=== PATIENT | male | born 1995 | race Caucasian/White ===

== ENCOUNTER 2018-03-18 08:17 | Emergency (ER) | payer OTHER ==
[2018-03-18] MEDS ORDERED: ONDANSETRON 4 MG/2 ML VIAL IVP STA (08:31)
[2018-03-18] MEDS ORDERED: KETOROLAC 60 MG/2 ML VIAL IVP STA (08:31)
[2018-03-18] MEDS ORDERED: SODIUM CHLORIDE 0.9% 1,000 ML IV ONE (08:31)
--- NOTE | 2018-03-18 08:41 | ED Physician Documentation ---
PD HPI ABD PAIN - Stated complaint Stated Complaint: ABD PX - Chief complaint Chief Complaint: Abd Pain - History obtained from History obtained from: Patient - History of Present Illness Timing - onset: Last night Timing - details: Gradual onset, Still present Severity Comments: moderate Quality: Dull, Throbbing Location: RLQ Radiation: Other (Throughout the lower abdomen) Improved by: Other (Nothing) Worsened by: Moving Associated symptoms: Nausea, Vomiting, Diarrhea Similar symptoms before: No diagnosis Recently seen: Not recently seen Review of Systems Constitutional: reports: Chills. denies: Fever Eyes: denies: Discharge Ears: denies: Ear pain Nose: denies: Congestion Throat: denies: Sore throat Cardiac: denies: Chest pain / pressure Respiratory: denies: Dyspnea GI: reports: Abdominal Pain, Nausea, Vomiting, Diarrhea : denies: Dysuria Skin: denies: Rash Musculoskeletal: denies: Neck pain Neurologic: denies: Generalized weakness Immunocompromised: denies: Chemotherapy PD PAST MEDICAL HISTORY - Present Medications Home Medications: Ambulatory Orders Medication Instructions Recorded Confirmed Famotidine [Pepcid] 20 mg PO BID PRN #60 tablet 03/18/18 Naproxen [Naprosyn] 500 mg PO BID PRN 30 Days #30 03/18/18 tablet Ondansetron Odt [Zofran] 4 mg TL Q6H PRN #30 tablet 03/18/18 - Allergies Allergies/Adverse Reactions: Allergies Allergy/AdvReac Type Severity Reaction Status Date / Time No Known Drug Allergies Allergy Verified 03/18/18 08:28 PD ED PE NORMAL - General General: Alert and oriented X 3. No: No acute distress (The patient appears uncomfortable) - HEENT HEENT: Atraumatic, PERRL, EOMI, Ears normal - Neck Neck: Supple, no meningeal sign - Cardiac Cardiac: RRR, Strong equal pulses - Respiratory Respiratory: No respiratory distress, Clear bilaterally - Abdomen Abdomen: Soft, Non distended. No: Non tender (The patient is tender to palpation in the right lower abdomen) - Back Back: No CVA TTP - Derm Derm: Normal color - Extremities Extremities: No deformity, No edema - Neuro Neuro: Alert and oriented X 3 - Psych Psych: Normal mood Results - Vitals Vitals: Vital Signs - 24 hr 03/18/18 03/18/18 08:26 11:03 Temperature 36.5 C Heart Rate 94 76 Respiratory 18 20 Rate Blood Pressure 138/77 H 126/63 O2 Saturation 98 99 Oxygen O2 Source Room air - Labs Labs: Laboratory Tests 03/18/18 03/18/18 03/18/18 08:35 08:35 09:00 WBC 4.3 L RBC 5.65 Hgb 17.2 Hct 49.1 MCV 87.0 MCH 30.5 MCHC 35.0 RDW 13.4 Plt Count 151 MPV 8.9 Neut # (Auto) 2.7 Lymph # (Auto) 1.1 L [place] # (Auto) 0.4 Eos # (Auto) 0.0 Baso # (Auto) 0.0 Absolute Nucleated RBC 0.00 Nucleated RBC % 0.1 Sodium 137 Potassium 4.1 Chloride 101 Carbon Dioxide 30 Anion Gap 6.0 BUN 11 Creatinine 1.0 Estimated GFR (MDRD) 94 Glucose 88 Calcium 9.5 Total Bilirubin 3.6 H AST 17 ALT 16 Alkaline Phosphatase 52 Total Protein 7.3 Albumin 4.8 Globulin 2.5 Albumin/Globulin Ratio 1.9 Lipase 19 L Urine Color DARK YELLOW Urine Clarity CLEAR Urine pH 8.0 H Ur Specific [place] 1.020 Urine Protein NEGATIVE Urine Glucose (UA) NEGATIVE Urine Ketones NEGATIVE Urine Occult Blood NEGATIVE Urine Nitrite NEGATIVE Urine Bilirubin NEGATIVE Urine Urobilinogen 1 (NORMAL) Ur Leukocyte Esterase NEGATIVE Ur Microscopic Review NOT INDICATED Urine Culture Comments NOT INDICATED - Rads (name of study) CT abd/pelvis Radiology: Final report received PD MEDICAL DECISION MAKING - ED course ED course: On reevaluation the patient resting comfortably and appears to be in no acute distress. The patient's workup does not reveal an acute etiology that would necessitate acute surgical consultation or admission to the hospital. Presently , the patient appears appropriate for discharge and ongoing outpatient management. I discussed with him the incidental finding of the elevated bilirubin. The patient will follow up with his primary care for recheck. I discussed warning signs and the possibility of early appendicitis still not showing up on CT scan. I recommended that the patient return to the emergency department immediately for any worsening or any concerns. Departure - Departure Disposition: 01 Home, Self Care Clinical Impression: Elevated bilirubin Abdominal pain Qualifiers: Abdominal location: lower abdomen, unspecified Qualified Code(s): R10.30 - Lower abdominal pain, unspecified Condition: Good Instructions: ED Abdominal Pain Unkn Cause, ED Abdominal Pain Appendx Poss Prescriptions: Famotidine [Pepcid] 20 mg PO BID PRN #60 tablet PRN Reason: Nausea / Vomiting Naproxen [Naprosyn] 500 mg PO BID PRN 30 Days #30 tablet PRN Reason: Pain Ondansetron Odt [Zofran] 4 mg TL Q6H PRN #30 tablet PRN Reason: Nausea / Vomiting Comments: Please follow-up with primary care this coming week for recheck. Please asked them to repeat a comprehensive metabolic panel to recheck your bilirubin level. Please return to the emergency department immediately for any worsening or any concerns. Forms: Activity restrictions
[2018-03-18 08:45] LABS: BASOPHILS % (AUTO) 0.3 %; HGB - HEMOGLOBIN 17.2 g/dL (14.0-18.0); LYMPHOCYTES # (AUTO) 1.1 10^3/uL (1.5-3.5); LYMPHOCYTES % (AUTO) 25.8 %; MEAN CORPUSCULAR HEMOGLOBIN 30.5 pg (27.0-31.0); MEAN PLATELET VOLUME 8.9 fL (7.4-11.4); MONOCYTES # (AUTO) 0.4 10^3/uL (0.0-1.0); MONOCYTES % (AUTO) 10.2 %; NEUTROPHILS # (AUTO) 2.7 10^3/uL (1.5-6.6); NEUTROPHILS % (AUTO) 62.7 %; PLT - PLATELET COUNT 151 10^3/uL (130-450); RED BLOOD COUNT 5.65 10^6/uL (4.70-6.10); RED CELL DISTRIBUTION WIDTH 13.4 % (12.0-15.0); WHITE BLOOD COUNT 4.3 x10^3/uL (4.8-10.8)
[2018-03-18 08:58] LABS: ALBUMIN 4.8 g/dL (3.2-5.5); ALBUMIN/GLOBULIN RATIO 1.9 (1.0-2.2); BILIRUBIN,TOTAL 3.6 mg/dL (0.2-1.0); CALCIUM 9.5 mg/dL (8.5-10.3); TOTAL PROTEIN 7.3 g/dL (6.7-8.2)
[2018-03-18 09:10] LABS: BILIRUBIN,URINE NEGATIVE (NEGATIVE); GLUCOSE, URINE (UA) NEGATIVE (NEGATIVE); KETONES,URINE (UA) NEGATIVE (NEGATIVE); LEUKOCYTE ESTERASE, URINE NEGATIVE (NEGATIVE); NITRITE,URINE NEGATIVE (NEGATIVE); OCCULT BLOOD,URINE NEGATIVE (NEGATIVE); PROTEIN,URINE NEGATIVE (NEGATIVE); UROBILINOGEN,URINE 1 (NORMAL) E.U./dL (NORMAL)
[2018-03-18 09:14] LABS: CLARITY,URINE CLEAR (CLEAR)
[2018-03-18] MEDS ORDERED: HYDROmorphone 1 MG/ML CARPUJECT IVP STA (11:08)
[2018-03-18] MEDS ORDERED: IOPAMIDOL-300 100 ML VIAL ONE (11:16)
--- NOTE | 2018-03-18 12:09 | CT Report ---
Reason: RLQ pain Procedure Date: 03/18/2018 Accession Number: [id number] / [id number] Procedure: CT - Abdomen/Pelvis W/ CPT Code: FULL RESULT: EXAM: CT ABDOMEN AND PELVIS EXAM DATE: 03/18/2018 11:32 AM. CLINICAL HISTORY: Right lower quadrant pain. COMPARISONS: None. TECHNIQUE: Routine helical CT imaging was performed through the abdomen and pelvis. IV contrast: 100 mL Isovue-300. Enteric contrast: No. Reconstructions: Coronal and sagittal. In accordance with CT protocol optimization, one or more of the following dose reduction techniques were utilized for this exam: automated exposure control, adjustment of mA and/or KV based on patient size, or use of iterative reconstructive technique. FINDINGS: Lung Bases: Unremarkable. Liver: Normal. No masses. Gallbladder/Bile Ducts: Unremarkable. Spleen: Normal. Pancreas: Normal. Adrenal Glands: Normal. Kidneys: Normal. No masses or hydronephrosis. Peritoneal Cavity/Bowel: Normal. No free fluid, free air or adenopathy. No masses or acute inflammatory process. The appendix is well visualized and normal. Pelvic Organs: Normal. The bladder and visualized pelvic organs are within normal limits. Vasculature: No aneurysms or other significant abnormality. Bones: No significant abnormality. Other: None. IMPRESSION: Normal abdomen and pelvis CT. RADIA
[2018-03-18 12:49] VITALS: BP 111/58
[2018-03-18] MEDS ORDERED: IOPAMIDOL-300 100 ML VIAL IVP ONE (16:00)
== END 2018-03-18 12:49 | disposition home or self-care (01) ==
LOC: ED 08:17
DX: E80.7 Disorder of bilirubin metabolism, unspecified (principal); R10.31 Right lower quadrant pain
CPT/HCPCS: 36415; 74177; 80053; 81003; 83690; 85025; 96361; 96374; 96375; 99284; J1170; Q9967; 81001; 87086

== ENCOUNTER 2019-02-23 06:47 | Observation (INO) | payer OTHER ==
[2019-02-23 07:06] LABS: BILIRUBIN,URINE NEGATIVE (NEGATIVE); GLUCOSE, URINE (UA) NEGATIVE (NEGATIVE); KETONES,URINE (UA) NEGATIVE (NEGATIVE); LEUKOCYTE ESTERASE, URINE NEGATIVE (NEGATIVE); NITRITE,URINE NEGATIVE (NEGATIVE); OCCULT BLOOD,URINE NEGATIVE (NEGATIVE); PROTEIN,URINE NEGATIVE (NEGATIVE); UROBILINOGEN,URINE 0.2 (NORMAL) E.U./dL (NORMAL)
[2019-02-23 07:10] LABS: CLARITY,URINE CLEAR (CLEAR)
--- NOTE | 2019-02-23 07:26 | ED Physician Documentation ---
PD HPI ABD PAIN - Stated complaint Stated Complaint: LOWER ABD PX/VOMING - Chief complaint Chief Complaint: Abd Pain - History obtained from History obtained from: Patient - History of Present Illness Timing - onset: How many days ago (2) Timing - duration: Days (2) Timing - details: Gradual onset (Onset of some periumbilical to right lower abdominal pain started 2 days ago associated with some frequent diarrhea and nausea. He did have some vomiting as well. He still continued with loose stool but the pain has intensified and become more consistent in the right lower quadrant. It hurts for him to palpate in the area as well as walk and lift his leg. He has felt feverish and chilled without taking his temperature. He did not have any head cold symptoms. He denies any prior similar episodes.), Still present Quality: Cramping, Aching, Pain Location: Periumbilical, RLQ Radiation: No: Lower back Improved by: No: Vomiting Worsened by: Eating, Moving, Palpation. No: Breathing Associated symptoms: Fever, Nausea, Vomiting, Diarrhea. No: Constipation, Dysuria Similar symptoms before: Has not had sx before Review of Systems Constitutional: reports: Fever (subjective), Chills Nose: denies: Rhinorrhea / runny nose, Congestion Throat: denies: Sore throat Respiratory: denies: Cough GI: reports: Abdominal Pain, Nausea, Vomiting, Diarrhea. denies: Hematemesis, Bloody / black stool : denies: Dysuria, Frequency, Discharge Skin: denies: Rash Neurologic: reports: Generalized weakness. denies: Near syncope, Altered mental status, Headache PD PAST MEDICAL HISTORY - Past Medical History Past Medical History: Yes Cardiovascular: None Respiratory: None Neuro: None Endocrine/Autoimmune: None GI: None : None HEENT: None Psych: None Musculoskeletal: None Derm: None - Past Surgical History Past Surgical History: Yes Ortho: Other - Present Medications Home Medications: Ambulatory Orders Medication Instructions Recorded Confirmed Famotidine [Pepcid] 20 mg PO BID PRN #60 tablet 03/18/18 Naproxen [Naprosyn] 500 mg PO BID PRN 30 Days #30 03/18/18 tablet Ondansetron Odt [Zofran] 4 mg TL Q6H PRN #30 tablet 03/18/18 - Allergies Allergies/Adverse Reactions: Allergies Allergy/AdvReac Type Severity Reaction Status Date / Time No Known Drug Allergies Allergy Verified 02/23/19 06:58 - Social History Does the pt smoke?: Yes Smoking Status: Current every day smoker Does the pt drink ETOH?: No Does the pt have substance abuse?: No - Immunizations Immunizations are current?: Yes - POLST Patient has POLST: No PD ED PE NORMAL - Vitals Vital signs reviewed: Yes - General General: Alert and oriented X 3, Well developed/nourished, Other (Appears very uncomfortable. Holding still in the bed with knees drawn up a little bit) - HEENT HEENT: Pharynx benign. No: Moist mucous membranes - Neck Neck: Supple, no meningeal sign, No adenopathy - Cardiac Cardiac: RRR, No murmur - Respiratory Respiratory: Clear bilaterally - Abdomen Abdomen: Soft, Non distended, No organomegaly, Other (Markedly tender with guarding and percussion tenderness in the right lower quadrant. There is significant rebound tenderness in the abdomen generally and particularly the right lower quadrant. Bowel sounds are present and diminished. There is no distention. No hernias are felt.) - Male Male : Deferred - Rectal Rectal: Deferred - Back Back: No CVA TTP - Derm Derm: Normal color, Warm and dry - Neuro Neuro: Alert and oriented X 3, No motor deficit, Normal speech Results - Vitals Vitals: Vital Signs - 24 hr 02/23/19 02/23/19 06:56 09:14 Temperature 36.6 C 36.8 C Heart Rate 65 61 Respiratory 17 15 Rate Blood Pressure 127/80 146/87 H O2 Saturation 100 99 Oxygen O2 Source Room air - Labs Labs: Laboratory Tests 02/23/19 02/23/19 02/23/19 06:55 07:47 07:47 WBC 4.3 L RBC 5.82 Hgb 17.1 Hct 50.9 MCV 87.5 MCH 29.4 MCHC 33.6 RDW 12.5 Plt Count 149 MPV 10.9 Neut # (Auto) 2.5 Lymph # (Auto) 1.2 L [place] # (Auto) 0.4 Eos # (Auto) 0.1 Baso # (Auto) 0.0 Absolute Nucleated RBC 0.00 Nucleated RBC % 0.0 Sodium 137 Potassium 3.9 Chloride 100 L Carbon Dioxide 29 Anion Gap 8.0 BUN 16 Creatinine 1.1 Estimated GFR (MDRD) 84 L Glucose 99 Calcium 9.0 Total Bilirubin 1.5 H AST 16 ALT 14 Alkaline Phosphatase 40 L Total Protein 6.8 Albumin 4.3 Globulin 2.5 Albumin/Globulin Ratio 1.7 Lipase 21 L Urine Color DARK YELLOW Urine Clarity CLEAR Urine pH 6.0 Ur Specific [place] >=1.030 H Urine Protein NEGATIVE Urine Glucose (UA) NEGATIVE Urine Ketones NEGATIVE Urine Occult Blood NEGATIVE Urine Nitrite NEGATIVE Urine Bilirubin NEGATIVE Urine Urobilinogen 0.2 (NORMAL) Ur Leukocyte Esterase NEGATIVE Ur Microscopic Review NOT INDICATED Urine Culture Comments NOT INDICATED - Rads (name of study) abd ct Radiology: Prelim report reviewed (Normal appendix and no acute finding to account for the pain), Discussed with rads, See rad report PD MEDICAL DECISION MAKING - ED course Complexity details: reviewed results, re-evaluated patient (Still very tender in the right lower quadrant. Having peritoneal signs. Presuming colitis given his symptoms and normal CT scan. He is having significantly too much pain and tenderness to treat outpatient. Will consult with surgery.), considered differential (His presentation and exam in particular are very suspicious for appendicitis. Consider gastroenteritis with local adenopathy or such to but he does have peritoneal signs and the appendiceal region. We will get labs and CT scan. Meanwhile give IV fluids and medications), d/w patient, d/w insolvency consultant (Dr. Covarrubias, surgery) Departure - Departure Disposition: ED Place in Observation Clinical Impression: Vomiting Qualifiers: Vomiting type: unspecified Vomiting Intractability: non-intractable Nausea presence: with nausea Qualified Code(s): R11.2 - Nausea with vomiting, unspecified Diarrhea Qualifiers: Diarrhea type: unspecified type Qualified Code(s): R19.7 - Diarrhea, unspecified Abdominal pain Qualifiers: Abdominal location: right lower quadrant Qualified Code(s): R10.31 - Right lower quadrant pain Clinical Impression: (Ruled Out): Appendicitis Condition: Stable Record reviewed to determine appropriate education?: Yes
[2019-02-23] MEDS ORDERED: HYDROmorphone 1 MG/ML CARPUJECT IVP STA ×3 (07:40→09:45)
[2019-02-23] MEDS ORDERED: SODIUM CHLORIDE 0.9% 1,000 ML IV ONE ×2 (07:40)
[2019-02-23] MEDS ORDERED: ONDANSETRON 4 MG/2 ML VIAL IVP STA (07:40)
[2019-02-23] MEDS ORDERED: IOVERSOL 320 100 ML VIAL IVP ONE ×2 (08:02→10:59)
[2019-02-23 08:13] LABS: BASOPHILS % (AUTO) 0.5 %; EOSINOPHILS # (AUTO) 0.1 10^3/uL (0.0-0.7); EOSINOPHILS % (AUTO) 2.1 %; HGB - HEMOGLOBIN 17.1 g/dL (14.0-18.0); LYMPHOCYTES # (AUTO) 1.2 10^3/uL (1.5-3.5); LYMPHOCYTES % (AUTO) 27.8 %; MEAN CORPUSCULAR HEMOGLOBIN 29.4 pg (27.0-31.0); MEAN CORPUSCULAR HGB CONC 33.6 g/dL (32.0-36.0); MEAN CORPUSCULAR VOLUME 87.5 fL (80.0-94.0); MEAN PLATELET VOLUME 10.9 fL (7.4-11.4); MONOCYTES # (AUTO) 0.4 10^3/uL (0.0-1.0); NEUTROPHILS # (AUTO) 2.5 10^3/uL (1.5-6.6); NEUTROPHILS % (AUTO) 59.1 %; PLT - PLATELET COUNT 149 10^3/uL (130-450); RED BLOOD COUNT 5.82 10^6/uL (4.70-6.10); RED CELL DISTRIBUTION WIDTH 12.5 % (12.0-15.0); WHITE BLOOD COUNT 4.3 x10^3/uL (4.8-10.8)
[2019-02-23 08:25] LABS: ALBUMIN 4.3 g/dL (3.2-5.5); ALBUMIN/GLOBULIN RATIO 1.7 (1.0-2.2); BILIRUBIN,TOTAL 1.5 mg/dL (0.2-1.0); CREATININE 1.1 mg/dL (0.6-1.2); TOTAL PROTEIN 6.8 g/dL (6.7-8.2)
--- NOTE | 2019-02-23 09:04 | CT Report ---
Reason: RLQ abd pain for 2 days Procedure Date: 02/23/2019 Accession Number: [id number] / [id number] Procedure: CT - Abdomen/Pelvis W CPT Code: FULL RESULT: EXAM: CT ABDOMEN AND PELVIS EXAM DATE: 02/23/2019 08:39 AM. CLINICAL HISTORY: RLQ abd pain for 2 days. COMPARISONS: ABDOMEN/PELVIS W/ 03/18/2018 11:30 AM. TECHNIQUE: Routine helical CT imaging was performed through the abdomen and pelvis. IV contrast: OPTI 320 100ML. Enteric contrast: No. Reconstructions: Coronal and sagittal. In accordance with CT protocol optimization, one or more of the following dose reduction techniques were utilized for this exam: automated exposure control, adjustment of mA and/or KV based on patient size, or use of iterative reconstructive technique. FINDINGS: Lung Bases: Unremarkable. Liver: Normal. No masses. Gallbladder/Bile Ducts: Unremarkable. Spleen: Normal. Pancreas: Normal. Adrenal Glands: Normal. Kidneys: Normal. No masses or hydronephrosis. Peritoneal Cavity/Bowel: Normal. No free fluid, free air or adenopathy. No masses or acute inflammatory process. The appendix is well visualized and normal. Pelvic Organs: Normal. The bladder and visualized pelvic organs are within normal limits. Vasculature: No aneurysms or other significant abnormality. Bones: No significant abnormality. Bone islands in the pelvis Other: None. IMPRESSION: Normal abdomen and pelvis CT. Normal appendix. No etiology for the abdominal pain RADIA
[2019-02-23] MEDS ORDERED: KETOROLAC 30 MG/ML VIAL IVP STA (09:26)
[2019-02-23] MEDS ORDERED: DIPHENOX/ATROPINE 2.5/0.025 MG TABLET PO STA (09:26)
[2019-02-23] MEDS ORDERED: AMPICILLIN/SULBACTAM 1.5 GM in SODIUM CHLORIDE 0.9% MINIBAG 100 ML IV STA (10:17)
[2019-02-23] MEDS ORDERED: PROMETHAZINE 25 MG/1 ML VIAL IM PRN (10:40)
[2019-02-23] MEDS ORDERED: SODIUM CHLORIDE FLUSH 0.9% 10 ML SYRINGE IVP PRN (10:40)
[2019-02-23] MEDS ORDERED: ONDANSETRON 4 MG/2 ML VIAL IVP PRN (10:40)
[2019-02-23] MEDS ORDERED: HYDROmorphone PCA 20MG/100ML IV PRN (10:45)
[2019-02-23] MEDS: PANTOPRAZOLE 40 MG VIAL IVP SCH (12:28)
[2019-02-23] MEDS: LACTATED RINGERS 1,000 ML IV SCH ×2 (12:37→23:42)
[2019-02-23] MEDS: PIPERACILLIN/TAZOBACTAM 3.375 GM in SODIUM CHLORIDE 0.9% MINIBAG 100 ML IV SCH ×3 (12:38→23:43)
[2019-02-23] MEDS: SODIUM CHLORIDE FLUSH 0.9% 10 ML SYRINGE IVP SCH (18:32)
--- NOTE | 2019-02-23 21:31 | HISTORY & PHYSICAL EXAMINATION ---
Chief Complaint - Chief Complaint Chief Complaint: Abdominal pain Abdominal Pain HPI - Admitted From Admitted from: ED - History Obtained From Records Reviewed: RN notes reviewed History obtained from: Patient Exam limitations: No limitations - History of Present Illness Severity at the worst: Severe Pain Quality: Dull, Aching, Cramping Timing: Gradual onset, Constant Duration: Days: (3) Improved with: Nothing Worsened by: Exertion, Inspiration, Eating, Movement, Palpation Associated symptoms: Diaphoresis, Nausea, Vomiting, Feeling faint / dizzy, General Weakness (Eddi reports 3 days of worsening abdominal pain. He says this has been associated with nausea and vomiting. He is not aware of any sick contacts. He has never had similar symptoms. He denies any blood in stool or emesis. He reports night sweats and subjective fever at home.) PMH/PSH - Past Medical History Cardiovascular: positive: None Respiratory: positive: None Neuro: positive: None Endocrine/Autoimmune: positive: None GI: positive: None : positive: None HEENT: positive: None Psych: positive: None Musculoskeletal: positive: None Derm: positive: None MRSA Hx?: No Social & Family Hx - Social History Does the pt smoke?: Yes Smoking Status: Former smoker Does the pt drink ETOH?: No Does the pt have substance abuse?: No - POLST Patient has POLST: No Meds/Allgy - Allergies Allergies/Adverse Reactions: Allergies Allergy/AdvReac Type Severity Reaction Status Date / Time No Known Drug Allergies Allergy Verified 02/23/19 06:58 Review of Systems - Constitutional Constitutional: reports: Fatigue, Fever, Chills, Malaise, Diaphoresis, Night sweats - Eyes Eyes: denies: Pain, Amaurosis - Ears, Nose & Throat Ears, Nose & Throat: denies: Ear pain, Tinnitus, Vertigo, Sore throat - Cardiovascular Cariovascular: denies: Palpitations, Chest pain, Edema - Respiratory Respiratory: denies: Cough, Orthopnea - Gastrointestinal Gastrointestinal: reports: Abdominal pain, Diarrhea, Nausea, Vomiting, Reflux/heartburn, Poor appetite. denies: Rectal bleeding, Black stools, Bloody stools - Genitourinary Genitourinary: denies: Dysuria, Frequency, Urgency - Musculoskeletal Musculoskeletal: denies: Muscle pain, Back pain - Integumentary Integumentary: denies: Rash, Lesions - Neurological Neurological: denies: Focal weakness - Hematologic/Lymphatic Hematologic/Lymphatic: denies: Anemia, Bruising Exam - Vital Signs Reviewed Vital Signs: Yes Vital Signs: Vital Signs x48h Temp Pulse Resp BP Pulse Ox 02/23/19 20:00 36.7 C 59 L 16 118/65 99 02/23/19 18:00 16 02/23/19 17:08 16 02/23/19 16:00 14 02/23/19 15:43 36.5 C 55 L 16 121/64 97 02/23/19 15:00 14 02/23/19 14:00 14 - Physical Exam General Appearance: positive: Moderate distress, Lethargic Eyes Bilateral: positive: Normal inspection, PERRL, EOMI ENT: positive: ENT inspection nml, Pharynx nml Neck: positive: Nml inspection, Trachea midline. negative: Lymphadenopathy (R), Lymphadenopathy (L) Respiratory: positive: Chest non-tender, No respiratory distress, Breath sounds nml Cardiovascular: positive: Regular rate & rhythm, No murmur Peripheral Pulses: positive: 2+ Abdomen: positive: Tenderness, Guarding, Rebound, Abnml bowel sounds, Other (Hyperactive bowel sounds. Global tenderness to palpation.Tenderness extends i nto bilateral groins.) Back: positive: CVA tenderness (R), CVA tenderness (L) Skin: positive: Color nml, No rash Extremities: positive: Non-tender, Full ROM, Nml appearance Neurologic/Psychiatric: positive: Oriented x3, CN's nml (2-12) Results - Lab Results Fish Bones: 02/23/19 07:47 02/23/19 07:47 Other Lab Results: Lab Results x24hrs 02/23/19 02/23/19 02/23/19 Range/Units 07:47 07:47 06:55 WBC 4.3 L (4.8-10.8) x10^3/uL RBC 5.82 (4.70-6.10) 10^6/uL Hgb 17.1 (14.0-18.0) g/dL Hct 50.9 (42.0-52.0) % MCV 87.5 (80.0-94.0) fL MCH 29.4 (27.0-31.0) pg MCHC 33.6 (32.0-36.0) g/dL RDW 12.5 (12.0-15.0) % Plt Count 149 (130-450) 10^3/uL MPV 10.9 (7.4-11.4) fL Neut # (Auto) 2.5 (1.5-6.6) 10^3/uL Lymph # (Auto) 1.2 L (1.5-3.5) 10^3/uL [place] # (Auto) 0.4 (0.0-1.0) 10^3/uL Eos # (Auto) 0.1 (0.0-0.7) 10^3/uL Baso # (Auto) 0.0 (0.0-0.1) 10^3/uL Absolute Nucleated RBC 0.00 x10^3/uL Nucleated RBC % 0.0 /100WBC Sodium 137 (135-145) mmol/L Potassium 3.9 (3.5-5.0) mmol/L Chloride 100 L (101-111) mmol/L Carbon Dioxide 29 (21-32) mmol/L Anion Gap 8.0 (6-13) BUN 16 (6-20) mg/dL Creatinine 1.1 (0.6-1.2) mg/dL Estimated GFR (MDRD) 84 L (>89) Glucose 99 (70-100) mg/dL Calcium 9.0 (8.5-10.3) mg/dL Total Bilirubin 1.5 H (0.2-1.0) mg/dL AST 16 (10-42) IU/L ALT 14 (10-60) IU/L Alkaline Phosphatase 40 L (42-121) IU/L Total Protein 6.8 (6.7-8.2) g/dL Albumin 4.3 (3.2-5.5) g/dL Globulin 2.5 (2.1-4.2) g/dL Albumin/Globulin Ratio 1.7 (1.0-2.2) Lipase 21 L (22-51) U/L Urine Color DARK YELLOW Urine Clarity CLEAR (CLEAR) Urine pH 6.0 (5.0-7.5) PH Ur Specific [place] >=1.030 H (1.002-1.030) Urine Protein NEGATIVE (NEGATIVE) mg/dL Urine Glucose (UA) NEGATIVE (NEGATIVE) mg/dL Urine Ketones NEGATIVE (NEGATIVE) mg/dL Urine Occult Blood NEGATIVE (NEGATIVE) Urine Nitrite NEGATIVE (NEGATIVE) Urine Bilirubin NEGATIVE (NEGATIVE) Urine Urobilinogen 0.2 (NORMAL) (NORMAL) E.U./dL Ur Leukocyte Esterase NEGATIVE (NEGATIVE) Ur Microscopic Review NOT INDICATED Urine Culture Comments NOT INDICATED - Diagnostic Imaging Results Diagnostic Imaging Results: positive: Prelim report reviewed, Final report reviewed Diagnostic Imaging Results Comments: Essentially normal. No clear explanation for symptoms - EKG Results EKG Interpreted Independently: No Impression/Plan - Problem List Problem List: Abdominal pain of unknown etiology. Symptoms would suggest colitis or appendicitis. CT scan is not consistent with appendicitis. Will admit for hydration, IV antibiotic therapy and supportive care. Check stool studies and recheck labs in the AM
[2019-02-24] MEDS: SODIUM CHLORIDE FLUSH 0.9% 10 ML SYRINGE IVP SCH ×3 (00:13→16:33)
[2019-02-24] MEDS: PIPERACILLIN/TAZOBACTAM 3.375 GM in SODIUM CHLORIDE 0.9% MINIBAG 100 ML IV SCH ×3 (05:30→18:43)
[2019-02-24] MEDS: PANTOPRAZOLE 40 MG VIAL IVP SCH (06:23)
[2019-02-24] MEDS: LACTATED RINGERS 1,000 ML IV SCH (10:32)
[2019-02-24 13:42] LABS: BASOPHILS % (AUTO) 0.5 %; EOSINOPHILS # (AUTO) 0.1 10^3/uL (0.0-0.7); EOSINOPHILS % (AUTO) 1.6 %; HGB - HEMOGLOBIN 15.3 g/dL (14.0-18.0); LYMPHOCYTES # (AUTO) 1.4 10^3/uL (1.5-3.5); MEAN CORPUSCULAR HEMOGLOBIN 29.6 pg (27.0-31.0); MEAN CORPUSCULAR HGB CONC 34.1 g/dL (32.0-36.0); MEAN CORPUSCULAR VOLUME 86.8 fL (80.0-94.0); MEAN PLATELET VOLUME 10.7 fL (7.4-11.4); MONOCYTES # (AUTO) 0.4 10^3/uL (0.0-1.0); MONOCYTES % (AUTO) 6.5 %; NEUTROPHILS # (AUTO) 3.8 10^3/uL (1.5-6.6); PLT - PLATELET COUNT 142 10^3/uL (130-450); RED BLOOD COUNT 5.17 10^6/uL (4.70-6.10); RED CELL DISTRIBUTION WIDTH 12.6 % (12.0-15.0); WHITE BLOOD COUNT 5.7 x10^3/uL (4.8-10.8)
[2019-02-24 14:03] LABS: ALBUMIN 3.5 g/dL (3.2-5.5); ALBUMIN/GLOBULIN RATIO 1.6 (1.0-2.2); BILIRUBIN,TOTAL 2.1 mg/dL (0.2-1.0); CALCIUM 8.6 mg/dL (8.5-10.3); CREATININE 1.1 mg/dL (0.6-1.2); TOTAL PROTEIN 5.7 g/dL (6.7-8.2)
[2019-02-24 15:37] VITALS: BP 126/61
--- NOTE | 2019-02-24 17:57 | Discharge Plan ---
Discharge Plan Problem Reviewed?: Yes Disposition: Home, Self Care Condition: Good Prescriptions: Amox/Clav 875/125 [Augmentin] 1 each PO Q12H #10 tablet Diet: Regular Activity Restrictions: No Restrictions Shower Restrictions: No Driving Restrictions: No Plan of Treatment: Take medication as directed. Follow up with Dr. Covarrubias in 1 week. Assessment: Colitis - improved No Smoking: If you smoke, Please STOP! Call for help.
--- NOTE | 2019-02-24 18:00 | DISCHARGE SUMMARY ---
"Discharge Summary Admit Date: 02/23/19 Discharge Date: 02/24/19 Discharging Provider: Marci Primary Care Provider: [facility] Condition at Discharge: Good Discharge Disposition: 01 Home, Self Care - DIAGNOSES Admission Diagnoses: Colitis Discharge Diagnoses with Status of Each Condition: Improved - HPI History of Present Illness: Eddi presented to the ED with abdominal pain with nausea and vomiting. He was admitted for treatment of colitis. - CONSULTS | PROCEDURES Consultations: None Procedures: None - HOSPITAL COURSE Hospital Course: Eddi was admitted to the Med/Surg unit and started on IV antibiotic therapy and supportive care. He has improved dramatically over night. He was able to eat today and has had no further nausea or vomiting. He reports some flatus but has not had a bowel movement. He will be discharged to the care of his friends and family in [place]. - ALLERGIES Allergies/Adverse Reactions: Allergies Allergy/AdvReac Type Severity Reaction Status Date / Time No Known Drug Allergies Allergy Verified 02/23/19 06:58 - MEDICATIONS Home Medications: Ambulatory Orders Medication Instructions Recorded Confirmed Amox/Clav 875/125 [Augmentin] 1 each PO Q12H #10 tablet 02/24/19 - PHYSICAL EXAM AT DISCHARGE General Appearance: positive: No acute distress, Alert Eyes Bilateral: positive: Normal inspection, PERRL, EOMI ENT: positive: ENT inspection nml, Pharynx nml, No signs of dehydration Neck: positive: Nml inspection, Thyroid nml, Trachea midline Respiratory: positive: Chest non-tender, No respiratory distress, Breath sounds nml Cardiovascular: positive: Regular rate & rhythm, No murmur, No gallop Peripheral Pulses: positive: 2+ Abdomen: positive: Nml bowel sounds, Other (Minimal global tenderness to palpation now. Much improved from examination 24 hours ago) Back: positive: Nml inspection. negative: CVA tenderness (R), CVA tenderness (L) Skin: positive: Color nml Extremities: positive: Non-tender, Full ROM Neurologic/Psychiatric: positive: Oriented x3, CN's nml (2-12) - LABS Result Diagrams: 02/24/19 13:26 02/24/19 13:26 - DIAGNOSTIC IMAGING Diagnostic Imaging Results: Final report reviewed Diagnostic Imaging Results Comments: Normal CT - FOLLOW UP Follow Up: Dr. Covarrubias in 1 week - TIME SPENT Time Spent in Discharge (Minutes): 25"
== END 2019-02-24 19:15 | disposition home or self-care (01) ==
LOC: ED 06:47 → MS3 10:40
PROVIDERS: ADMIT Surgery; ATTEND Surgery
DX: K52.9 Noninfective gastroenteritis and colitis, unspecified (principal); Z87.891 Personal history of nicotine dependence
CPT/HCPCS: 36415; 74177; 80053; 81003; 83690; 85025; 96361; 96365; 96366; 96367; 96375; 96376; 99284; 99285; A9270; G0378; J1170; J7120; Q9967; 81001; 83630; 87045; 87046; 87086; 87177; 87209; 87338; 87798

== ENCOUNTER 2019-04-21 09:13 | Emergency (ER) | payer OTHER ==
[2019-04-21] MEDS ORDERED: SODIUM CHLORIDE 0.9% 1,000 ML IV ONE ×2 (09:26)
[2019-04-21 09:53] LABS: BILIRUBIN,URINE NEGATIVE (NEGATIVE); GLUCOSE, URINE (UA) NEGATIVE (NEGATIVE); KETONES,URINE (UA) TRACE mg/dL (NEGATIVE); LEUKOCYTE ESTERASE, URINE TRACE (NEGATIVE); NITRITE,URINE NEGATIVE (NEGATIVE); OCCULT BLOOD,URINE NEGATIVE (NEGATIVE); PROTEIN,URINE NEGATIVE (NEGATIVE); UROBILINOGEN,URINE 1 (NORMAL) E.U./dL (NORMAL)
[2019-04-21 09:54] LABS: CLARITY,URINE HAZY (CLEAR)
[2019-04-21 09:59] LABS: BACTERIA,URINE Rare /HPF (None Seen); RBC,URINE 0-5 /HPF (0-5); SQUAMOUS EPITHELIAL CELL,UR MOD Squamous (<= Few)
[2019-04-21 10:01] LABS: BASOPHILS % (AUTO) 0.4 %; EOSINOPHILS # (AUTO) 0.1 10^3/uL (0.0-0.7); EOSINOPHILS % (AUTO) 1.7 %; HGB - HEMOGLOBIN 17.7 g/dL (14.0-18.0); LYMPHOCYTES # (AUTO) 1.2 10^3/uL (1.5-3.5); LYMPHOCYTES % (AUTO) 24.4 %; MEAN CORPUSCULAR HEMOGLOBIN 30.2 pg (27.0-31.0); MEAN CORPUSCULAR HGB CONC 33.9 g/dL (32.0-36.0); MEAN CORPUSCULAR VOLUME 89.1 fL (80.0-94.0); MEAN PLATELET VOLUME 10.8 fL (7.4-11.4); MONOCYTES # (AUTO) 0.5 10^3/uL (0.0-1.0); MONOCYTES % (AUTO) 9.3 %; NEUTROPHILS # (AUTO) 3.1 10^3/uL (1.5-6.6); NEUTROPHILS % (AUTO) 63.8 %; PLT - PLATELET COUNT 158 10^3/uL (130-450); RED BLOOD COUNT 5.86 10^6/uL (4.70-6.10); RED CELL DISTRIBUTION WIDTH 13.1 % (12.0-15.0); WHITE BLOOD COUNT 4.8 x10^3/uL (4.8-10.8)
[2019-04-21] MEDS ORDERED: KETOROLAC 30 MG/ML VIAL IVP STA (10:07)
[2019-04-21] MEDS ORDERED: diphenhydrAMINE INJ 50 MG/ML VIAL IVP STA (10:07)
[2019-04-21] MEDS ORDERED: PROCHLORPERAZINE 10 MG/2 ML VIAL IVP STA (10:07)
[2019-04-21 10:15] LABS: ALBUMIN 4.8 g/dL (3.2-5.5); ALBUMIN/GLOBULIN RATIO 1.9 (1.0-2.2); BILIRUBIN,TOTAL 3.2 mg/dL (0.2-1.0); CALCIUM 9.2 mg/dL (8.5-10.3); CREATININE 1.1 mg/dL (0.6-1.2); TOTAL PROTEIN 7.3 g/dL (6.7-8.2)
--- NOTE | 2019-04-21 10:32 | ED Physician Documentation ---
History of Present Illness - Stated complaint Stated Complaint: HEADACHE/DIZZINESS - Chief complaint Chief Complaint: Abd Pain - History obtained from History obtained from: Patient - History of Present Illness Timing: Yesterday Pain level max: 8 Pain level now: 7 - Additonal information Additional information: 23-year-old male presents the emergency department stating that he began to not feel well yesterday. Body aches, headache, neck pain, vomiting x1. Intermittent sharp abdominal pains[place] here for evaluation. No fevers. He states he took Benadryl yesterday which helped, but then the symptoms returned. No cough. Worse with movement, better with rest. Review of Systems Ten Systems: 10 systems reviewed and negative Constitutional: denies: Fever, Chills Ears: denies: Ear pain Nose: denies: Rhinorrhea / runny nose, Congestion Respiratory: denies: Dyspnea, Cough, Wheezing GI: denies: Diarrhea, Hematemesis, Bloody / black stool : denies: Dysuria Skin: denies: Rash Musculoskeletal: reports: Neck pain (states neck feels sore). denies: Back pain Neurologic: reports: Headache (gradual onset, holocranial. wraps from neck to forehead. worse with lights and sounds. Has been under increasing stress lately.). denies: Focal weakness, Numbness, Seizure, Confused PD PAST MEDICAL HISTORY - Past Medical History Cardiovascular: None Respiratory: None Neuro: None Endocrine/Autoimmune: None GI: None : None HEENT: None Psych: None Musculoskeletal: None Derm: None - Past Surgical History Past Surgical History: Yes Ortho: Other - Present Medications Home Medications: Ambulatory Orders Medication Instructions Recorded Confirmed No Known Home Medications 04/21/19 04/21/19 - Allergies Allergies/Adverse Reactions: Allergies Allergy/AdvReac Type Severity Reaction Status Date / Time No Known Drug Allergies Allergy Verified 04/21/19 09:18 - Social History Does the pt smoke?: Yes Smoking Status: Former smoker Does the pt drink ETOH?: No Does the pt have substance abuse?: No - Immunizations Immunizations are current?: Yes - POLST Patient has POLST: No PD ED PE NORMAL - Vitals Vital signs reviewed: Yes - General General: Alert and oriented X 3, No acute distress - HEENT HEENT: Atraumatic, PERRL, Ears normal, Moist mucous membranes, Pharynx benign - Neck Neck: Supple, no meningeal sign, Other (No meningeal signs. Full range of motion of the neck. Negative Kernig and Brudzinski) - Cardiac Cardiac: RRR, Strong equal pulses - Respiratory Respiratory: No respiratory distress, Clear bilaterally - Abdomen Abdomen: Soft, Non tender, Non distended - Back Back: No spinal TTP - Derm Derm: Warm and dry - Extremities Extremities: No edema - Neuro Neuro: Alert and oriented X 3, pocket closer 2-12 intact, No motor deficit, No sensory deficit, Normal speech Eye Opening: Spontaneous Motor: Obeys Commands Verbal: Oriented GCS Score: 15 - Psych Psych: Normal mood, Normal affect Results - Vitals Vitals: Vital Signs - 24 hr 04/21/19 04/21/19 04/21/19 09:16 11:22 12:40 Temperature 36.6 C Heart Rate 73 76 70 Respiratory 16 18 18 Rate Blood Pressure 144/84 H 143/87 H 118/66 O2 Saturation 99 99 97 Oxygen O2 Source Room air - Labs Labs: Laboratory Tests 04/21/19 04/21/19 04/21/19 09:42 09:42 09:44 WBC 4.8 RBC 5.86 Hgb 17.7 Hct 52.2 H MCV 89.1 MCH 30.2 MCHC 33.9 RDW 13.1 Plt Count 158 MPV 10.8 Neut # (Auto) 3.1 Lymph # (Auto) 1.2 L [place] # (Auto) 0.5 Eos # (Auto) 0.1 Baso # (Auto) 0.0 Absolute Nucleated RBC 0.00 Nucleated RBC % 0.0 Sodium 140 Potassium 3.9 Chloride 101 Carbon Dioxide 30 Anion Gap 9.0 BUN 15 Creatinine 1.1 Estimated GFR (MDRD) 84 L Glucose 81 Calcium 9.2 Total Bilirubin 3.2 H AST 17 ALT 19 Alkaline Phosphatase 43 Total Protein 7.3 Albumin 4.8 Globulin 2.5 Albumin/Globulin Ratio 1.9 Lipase 22 Urine Color YELLOW Urine Clarity HAZY Urine pH 6.0 Ur Specific [place] 1.025 Urine Protein NEGATIVE Urine Glucose (UA) NEGATIVE Urine Ketones TRACE Urine Occult Blood NEGATIVE Urine Nitrite NEGATIVE Urine Bilirubin NEGATIVE Urine Urobilinogen 1 (NORMAL) Ur Leukocyte Esterase TRACE H Urine RBC 0-5 Urine WBC 6-10 H Ur Squamous Epith Cells MOD Squamous H Urine Bacteria Rare Ur Microscopic Review INDICATED Urine Culture Comments NOT INDICATED Influenza A (Rapid) Influenza B (Rapid) 04/21/19 11:55 WBC RBC Hgb Hct MCV MCH MCHC RDW Plt Count MPV Neut # (Auto) Lymph # (Auto) [place] # (Auto) Eos # (Auto) Baso # (Auto) Absolute Nucleated RBC Nucleated RBC % Sodium Potassium Chloride Carbon Dioxide Anion Gap BUN Creatinine Estimated GFR (MDRD) Glucose Calcium Total Bilirubin AST ALT Alkaline Phosphatase Total Protein Albumin Globulin Albumin/Globulin Ratio Lipase Urine Color Urine Clarity Urine pH Ur Specific [place] Urine Protein Urine Glucose (UA) Urine Ketones Urine Occult Blood Urine Nitrite Urine Bilirubin Urine Urobilinogen Ur Leukocyte Esterase Urine RBC Urine WBC Ur Squamous Epith Cells Urine Bacteria Ur Microscopic Review Urine Culture Comments Influenza A (Rapid) Negative Influenza B (Rapid) Negative PD MEDICAL DECISION MAKING - ED course Complexity details: reviewed results, re-evaluated patient, considered differential, d/w patient ED course: Headache resolved in the emergency department. Patient is very well-appearing, nontoxic. Afebrile. No evidence of meningitis, subarachnoid hemorrhage. Appears to be a viral syndrome. Tolerating p.o. without difficulty. Able to range his neck and a full range of motion without any discomfort. We will treat as viral syndrome and follow-up with his doctor. Patient counseled regarding signs and symptoms for which I believe and urgent re-evaluation would be necessary. Patient with good understanding of and agreement to plan and is comfortable going home at this time This document was made in part using voice recognition software. While efforts are made to proofread this document, sound alike and grammatical errors may occur. Departure - Departure Disposition: 01 Home, Self Care Clinical Impression: Viral syndrome Condition: Good Instructions: ED Viral Syndrome Follow-Up: NAVID CHE MD [Primary Care Provider] - Within 1 week Comments: Go home and rest. Return if you worsen. Follow-up with your doctor for further care. Your testing is normal here today Discharge Date/Time: 04/21/19 12:40
[2019-04-21 12:41] VITALS: BP 118/66
== END 2019-04-21 12:40 | disposition home or self-care (01) ==
LOC: ED 09:13
DX: B34.9 Viral infection, unspecified (principal); Z87.891 Personal history of nicotine dependence
CPT/HCPCS: 36415; 80053; 81001; 83690; 85025; 87275; 87276; 96361; 96374; 96375; 99282; 99283; J1200; 81003; 87086

== ENCOUNTER 2019-04-23 13:23 | Outpatient (CLI) | payer OTHER | END 2019-04-23 13:24 | disposition critical access hospital (66) | LOC: EMS 13:23 | PROVIDERS: ATTEND Surgery | DX: R51 Headache (principal); H53.9 Unspecified visual disturbance; R11.0 Nausea | CPT/HCPCS: A0425; A0427 ==

== ENCOUNTER 2019-04-23 14:00 | Emergency (ER) | payer OTHER ==
[2019-04-23] MEDS ORDERED: BUTALB/ACETAM/CAFF 50/325/40MG TABLET PO STA (14:40)
[2019-04-23] MEDS ORDERED: IOVERSOL 320 100 ML VIAL IVP ONE ×2 (15:06→15:48)
[2019-04-23] MEDS ORDERED: KETOROLAC 30 MG/ML VIAL IVP STA (15:10)
--- NOTE | 2019-04-23 15:10 | ED Physician Documentation ---
PD HPI HEADACHE - Stated complaint Stated Complaint: RESTREPO - Chief complaint Chief Complaint: Neuro - History obtained from History obtained from: Patient - History of Present Illness Timing - onset: How many weeks ago (1) Timing - onset during: Rest Timing - duration: Weeks (1) Timing - details: Gradual onset Pain level max: 9 Pain level now: 9 Location: Back Quality: Throbbing Associated symptoms: Stiff neck (Patient states that he felt a pop in his neck today and a sudden worsening of the pain.). No: Fever, Nausea, Vomiting, Weakness, Numbness, Syncope, Seizure, Eye pain, Vision changes Improved by: Rest, Meds (Toradol helped at the last ER visit) Worsened by: Moving. No: Light, Noise Contributing factors: No: Anticoagulated, Possible carbon monoxide, Hypertension, Recent illness, Trauma Recently seen: Emergency Dept (Seen here 4 days ago for same. States headache worsened today. Negative head CT at the initial visit.) Review of Systems Ten Systems: 10 systems reviewed and negative Constitutional: denies: Fever, Chills Eyes: denies: Decreased vision, Photophobia Ears: denies: Ear pain Nose: denies: Rhinorrhea / runny nose, Congestion Throat: denies: Sore throat Cardiac: denies: Chest pain / pressure Respiratory: denies: Cough GI: denies: Abdominal Pain, Abdominal Swelling, Nausea, Vomiting, Diarrhea : denies: Dysuria Skin: denies: Rash Musculoskeletal: denies: Back pain Neurologic: denies: Focal weakness, Numbness, Seizure, Confused, Altered mental status, Head injury, LOC PD PAST MEDICAL HISTORY - Past Medical History Cardiovascular: None Respiratory: None Neuro: None Endocrine/Autoimmune: None GI: None : None HEENT: None Psych: None Musculoskeletal: None Derm: None - Past Surgical History Past Surgical History: Yes Ortho: Other - Present Medications Home Medications: Ambulatory Orders Medication Instructions Recorded Confirmed Cyclobenzaprine [Flexeril] 10 mg PO TID PRN #20 tablet 04/23/19 Meloxicam [Mobic] 15 mg PO DAILY PRN #20 tablet 04/23/19 - Allergies Allergies/Adverse Reactions: Allergies Allergy/AdvReac Type Severity Reaction Status Date / Time No Known Drug Allergies Allergy Verified 04/23/19 14:14 - Social History Does the pt smoke?: Yes Smoking Status: Former smoker Does the pt drink ETOH?: No Does the pt have substance abuse?: No - Immunizations Immunizations are current?: Yes - POLST Patient has POLST: No PD ED PE NORMAL - Vitals Vital signs reviewed: Yes - General General: Alert and oriented X 3, No acute distress, Well developed/nourished - HEENT HEENT: PERRL, Moist mucous membranes - Neck Neck: Supple, no meningeal sign, No bony TTP, Other (No step-off or deformity.) - Cardiac Cardiac: RRR - Respiratory Respiratory: No respiratory distress, Clear bilaterally - Abdomen Abdomen: Soft, Non tender, Non distended - Back Back: No spinal TTP - Derm Derm: Warm and dry, No rash - Extremities Extremities: No edema, No calf tenderness / cord - Neuro Neuro: Alert and oriented X 3, carpenter maintenance 2-12 intact, No motor deficit, No sensory deficit, Normal speech Eye Opening: Spontaneous Motor: Obeys Commands Verbal: Oriented GCS Score: 15 - Psych Psych: Normal mood, Normal affect Results - Vitals Vitals: Vital Signs - 24 hr 04/23/19 04/23/19 04/23/19 14:05 17:03 17:09 Temperature 37.0 C 37 C 37 C Heart Rate 95 75 75 Respiratory 16 16 16 Rate Blood Pressure 148/88 H 148/87 H 148/87 H O2 Saturation 97 100 100 Oxygen O2 Source Room air - Labs Labs: Laboratory Tests 04/23/19 04/23/19 15:05 15:05 WBC 6.4 RBC 5.79 Hgb 17.7 Hct 51.1 MCV 88.3 MCH 30.6 MCHC 34.6 RDW 13.0 Plt Count 182 MPV 10.7 Neut # (Auto) 4.9 Lymph # (Auto) 0.9 L [place] # (Auto) 0.5 Eos # (Auto) 0.0 Baso # (Auto) 0.0 Absolute Nucleated RBC 0.00 Nucleated RBC % 0.0 Sodium 141 Potassium 3.6 Chloride 102 Carbon Dioxide 30 Anion Gap 9.0 BUN 12 Creatinine 1.1 Estimated GFR (MDRD) 84 L Glucose 99 Calcium 9.6 - Rads (name of study) CTA head Radiology: Prelim report reviewed, EMP read contemporaneously CTA neck Radiology: Prelim report reviewed, EMP read contemporaneously PD MEDICAL DECISION MAKING - ED course Complexity details: reviewed old records, reviewed results, re-evaluated patient, considered differential, d/w patient ED course: Patient presents to the emergency department with a headache. Seen here recently for same. Negative head CT. States felt a pop today. No acute findings on CT Ev of the head and neck. He is moving his neck without difficulty. Light is not bothering him. He is GCS 15. No evidence of meningitis or subarachnoid hemorrhage. He does not appear in any significant distress. Pain well controlled. We will have him follow-up with his doctor for further care. Patient counseled regarding signs and symptoms for which I believe and urgent re-evaluation would be necessary. Patient with good understanding of and agreement to plan and is comfortable going home at this time This document was made in part using voice recognition software. While efforts are made to proofread this document, sound alike and grammatical errors may occur. CT HEAD: 1. No evidence of acute intracranial abnormality on the noncontrast CT head. Specifically, no evidence of acute infarct, intracranial hemorrhage, mass effect, midline shift, or hydrocephalus. 2. No abnormal enhancement on the postcontrast CT head. CTA NECK: 1. No CTA evidence of hemodynamically significant stenosis, large vessel occlusion, acute dissection, aneurysm, or vascular malformation within extracranial arteries. CTA HEAD: 1. No CTA evidence of hemodynamically significant stenosis, large vessel occlusion, acute dissection, aneurysm, or vascular malformation within intracranial arteries. Departure - Departure Disposition: 01 Home, Self Care Clinical Impression: Headache Qualifiers: Headache type: unspecified Headache chronicity pattern: acute headache Intractability: not intractable Qualified Code(s): R51 - Headache Condition: Good Instructions: ED Cephalgia Unspecified Follow-Up: [facility] [Provider Group] - Within 3 Days Prescriptions: Cyclobenzaprine [Flexeril] 10 mg PO TID PRN #20 tablet PRN Reason: Spasms Meloxicam [Mobic] 15 mg PO DAILY PRN #20 tablet PRN Reason: pain Comments: The cause of your symptoms is unclear today. [place] Your testing is normal. Do not drive or operate heavy machinery while taking the Flexeril. Discharge Date/Time: 04/23/19 17:09
[2019-04-23 15:12] LABS: BASOPHILS % (AUTO) 0.3 %; EOSINOPHILS % (AUTO) 0.6 %; HGB - HEMOGLOBIN 17.7 g/dL (14.0-18.0); LYMPHOCYTES # (AUTO) 0.9 10^3/uL (1.5-3.5); LYMPHOCYTES % (AUTO) 14.3 %; MEAN CORPUSCULAR HEMOGLOBIN 30.6 pg (27.0-31.0); MEAN CORPUSCULAR HGB CONC 34.6 g/dL (32.0-36.0); MEAN CORPUSCULAR VOLUME 88.3 fL (80.0-94.0); MEAN PLATELET VOLUME 10.7 fL (7.4-11.4); MONOCYTES # (AUTO) 0.5 10^3/uL (0.0-1.0); MONOCYTES % (AUTO) 7.2 %; NEUTROPHILS # (AUTO) 4.9 10^3/uL (1.5-6.6); PLT - PLATELET COUNT 182 10^3/uL (130-450); RED BLOOD COUNT 5.79 10^6/uL (4.70-6.10); WHITE BLOOD COUNT 6.4 x10^3/uL (4.8-10.8)
[2019-04-23 15:26] LABS: CALCIUM 9.6 mg/dL (8.5-10.3); CREATININE 1.1 mg/dL (0.6-1.2)
[2019-04-23] MEDS ORDERED: SODIUM CHLORIDE 0.9% 1,000 ML IV ONE (15:59)
--- NOTE | 2019-04-23 16:20 | CT Report ---
Reason: L neck pain, headache Procedure Date: 04/23/2019 Accession Number: [id number] / [id number] Procedure: CT - ANGIO HEAD W/WO CPT Code: Final Report FULL RESULT: EXAM: CT ANGIOGRAM HEAD AND NECK. CT SCAN HEAD WITHOUT AND WITH CONTRAST. EXAM DATE: 04/23/2019 03:44 PM. CLINICAL HISTORY: 23-year-old male. L neck pain, headache. COMPARISON: NECK ANGIO 04/23/2019 3:22 PM. TECHNIQUE: Routine axial helical CTA imaging was performed from the aortic arch through the [place] of [place]. Routine axial CT imaging of the head was performed prior to and following contrast administration. Reconstructions: Routine multiplanar 3D MIP reconstructions. IV contrast: OPTI 320 80ML. NASCET Criteria are used for stenosis measurements. In accordance with CT protocol optimization, one or more of the following dose reduction techniques were utilized for this exam: automated exposure control, adjustment of mA and/or KV based on patient size, or use of iterative reconstructive technique. FINDINGS: CT SCAN HEAD: Parenchyma: No intraparenchymal hemorrhage. No evidence of mass, midline shift, or CT findings of acute infarction. Cross-white differentiation is distinct. No abnormal enhancement on the postcontrast CT head. Extra-axial Spaces: Normal for age. No subdural or epidural collections identified. Ventricles: Normal in size and position. Sinuses and Orbits: Imaged paranasal sinuses, orbits, and mastoids show no significant abnormality. Bones: No evidence of fracture or calvarial defect. CT ANGIOGRAM EXTRACRANIAL CIRCULATION: The visualized arch is unremarkable. Great vessels are patent and unremarkable. Right Carotid: The common carotid, internal carotid, and external carotid arteries are widely patent. No dissection, significant atherosclerotic plaque, or calcification identified. Left Carotid: The common carotid, internal carotid, and external carotid arteries are widely patent. No dissection, significant atherosclerotic plaque, or calcification identified. Vertebrals: The vertebrobasilar system shows no stenosis, dissection, aneurysm, or significant atherosclerotic disease. CT ANGIOGRAM INTRACRANIAL CIRCULATION: RIGHT: Internal Carotid artery: No evidence of dissection. No evidence of aneurysm along the intracranial ICA. Anterior Cerebral Artery: Patent without significant stenosis, aneurysm, or vascular malformation. Middle Cerebral Artery: Patent without significant stenosis, aneurysm, or vascular malformation. Posterior Cerebral Artery: Patent without significant stenosis, aneurysm, or vascular malformation. Posterior Communicating Artery: Not visualized, aplastic versus markedly hypoplastic LEFT: Internal Carotid artery: No evidence of dissection. No evidence of aneurysm along the intracranial ICA. Anterior Cerebral Artery: Patent without significant stenosis, aneurysm, or vascular malformation. Middle Cerebral Artery: Patent without significant stenosis, aneurysm, or vascular malformation. Posterior Cerebral Artery: Patent without significant stenosis, aneurysm, or vascular malformation. Posterior Communicating Artery: Only faintly visualized, likely hypoplastic. CENTRAL: Anterior Communicating Artery: Patent. No aneurysm. The dural venous sinuses are patent. Other: The visualized lung apices are clear. The visualized osseous structures demonstrate no acute abnormality. The visualized soft tissues of the neck demonstrate no acute abnormality. IMPRESSION: CT HEAD: 1. No evidence of acute intracranial abnormality on the noncontrast CT head. Specifically, no evidence of acute infarct, intracranial hemorrhage, mass effect, midline shift, or hydrocephalus. 2. No abnormal enhancement on the postcontrast CT head. CTA NECK: 1. No CTA evidence of hemodynamically significant stenosis, large vessel occlusion, acute dissection, aneurysm, or vascular malformation within extracranial arteries. CTA HEAD: 1. No CTA evidence of hemodynamically significant stenosis, large vessel occlusion, acute dissection, aneurysm, or vascular malformation within intracranial arteries. RADIA
[2019-04-23] MEDS ORDERED: SUMAtriptan 6 MG/0.5 ML VIAL SUBQ STA (16:30)
[2019-04-23] MEDS ORDERED: diazePAM INJ 5 MG/ML SYRINGE IVP STA (16:30)
[2019-04-23] MEDS ORDERED: DEXAMETHASONE 10 MG/ML VIAL IVP STA (16:31)
[2019-04-23 17:04] VITALS: BP 148/87
== END 2019-04-23 17:09 | disposition home or self-care (01) ==
LOC: EDUNIT# → ED 14:00
DX: R51 Headache (principal); M54.2 Cervicalgia; Z87.891 Personal history of nicotine dependence
CPT/HCPCS: 36415; 70496; 70498; 80048; 85025; 96361; 96372; 96374; 96375; 99284; A9270; Q9967

== ENCOUNTER 2019-06-15 21:40 | Emergency (ER) | payer OTHER ==
--- NOTE | 2019-06-15 22:17 | ED Physician Documentation ---
History of Present Illness - Stated complaint Stated Complaint: SI - Chief complaint Chief Complaint: MHE - History obtained from History obtained from: Patient (23-year-old history of depression presented to the emergency room with suicidal ideation after an argument with his father yesterday afternoon. There was heated argument on the phone. Patient still have suicidal ideation but nothing specific. No fever no chills no nausea no vomiting. Today throughout the day he had drink plenty of alcohol including 7-8 beers +5-6 shots. In emergency room patient is alert and oriented x3. No stroke symptoms. History of suicidal intent 7 years ago.) - History of Present Illness Timing: Yesterday Review of Systems Ten Systems: 10 systems reviewed and negative Constitutional: reports: Reviewed and negative Eyes: reports: Reviewed and negative Ears: reports: Reviewed and negative Nose: reports: Reviewed and negative Throat: reports: Reviewed and negative Cardiac: reports: Reviewed and negative Respiratory: reports: Reviewed and negative GI: reports: Reviewed and negative : reports: Reviewed and negative Skin: reports: Reviewed and negative Musculoskeletal: reports: Reviewed and negative Neurologic: reports: Reviewed and negative Psychiatric: reports: Depressed, Suicidal Endocrine: reports: Reviewed and negative Immunocompromised: reports: Reviewed and negative PD PAST MEDICAL HISTORY - Past Medical History Cardiovascular: None Respiratory: None Neuro: None Endocrine/Autoimmune: None GI: None : None HEENT: None Psych: Depression Musculoskeletal: None Derm: None - Past Surgical History Past Surgical History: Yes Ortho: Other - Present Medications Home Medications: Ambulatory Orders Medication Instructions Recorded Confirmed Cyclobenzaprine [Flexeril] 10 mg PO TID PRN #20 tablet 04/23/19 06/15/19 - Allergies Allergies/Adverse Reactions: Allergies Allergy/AdvReac Type Severity Reaction Status Date / Time No Known Drug Allergies Allergy Verified 06/15/19 22:18 - Social History Does the pt smoke?: Yes Smoking Status: Former smoker Does the pt drink ETOH?: No Does the pt have substance abuse?: No - Immunizations Immunizations are current?: Yes - POLST Patient has POLST: No PD ED PE NORMAL - Vitals Vital signs reviewed: Yes - General General: Alert and oriented X 3, No acute distress - HEENT HEENT: Atraumatic, PERRL, EOMI, Ears normal - Neck Neck: Supple, no meningeal sign - Cardiac Cardiac: RRR, No murmur - Respiratory Respiratory: Clear bilaterally - Abdomen Abdomen: Normal bowel sounds, Soft, Non tender, Non distended - Derm Derm: Warm and dry - Extremities Extremities: No deformity - Neuro Neuro: Alert and oriented X 3 Eye Opening: Spontaneous Motor: Obeys Commands Verbal: Oriented GCS Score: 15 - Psych Psych: Normal mood, Normal affect Results - Vitals Vitals: Vital Signs - 24 hr 06/15/19 06/15/19 21:49 23:48 Temperature 36.2 C L 36.6 C Heart Rate 94 79 Respiratory 18 18 Rate Blood Pressure 126/75 124/68 O2 Saturation 97 98 Oxygen O2 Source Room air - Labs Labs: Laboratory Tests 06/15/19 06/15/19 06/15/19 22:05 22:05 22:12 WBC 6.7 RBC 5.71 Hgb 17.2 Hct 50.9 MCV 89.1 MCH 30.1 MCHC 33.8 RDW 13.2 Plt Count 184 MPV 10.6 Neut # (Auto) 4.1 Lymph # (Auto) 1.9 [place] # (Auto) 0.6 Eos # (Auto) 0.1 Baso # (Auto) 0.0 Absolute Nucleated RBC 0.00 Nucleated RBC % 0.0 Sodium Potassium Chloride Carbon Dioxide Anion Gap BUN Creatinine Estimated GFR (MDRD) Glucose Calcium TSH Urine Color YELLOW Urine Clarity CLEAR Urine pH 6.0 Ur Specific [place] 1.020 Urine Protein NEGATIVE Urine Glucose (UA) NEGATIVE Urine Ketones NEGATIVE Urine Occult Blood NEGATIVE Urine Nitrite NEGATIVE Urine Bilirubin NEGATIVE Urine Urobilinogen 0.2 (NORMAL) Ur Leukocyte Esterase NEGATIVE Ur Microscopic Review NOT INDICATED Urine Culture Comments NOT INDICATED Salicylates Urine Opiates Screen NEGATIVE Ur Oxycodone Screen NEGATIVE Urine Methadone Screen NEGATIVE Ur Propoxyphene Screen NEGATIVE Acetaminophen Ur Barbiturates Screen NEGATIVE Ur Tricyclics Screen NEGATIVE Ur Phencyclidine Scrn NEGATIVE Ur Amphetamine Screen NEGATIVE U Methamphetamines Scrn NEGATIVE U Benzodiazepines Scrn NEGATIVE Urine Cocaine Screen NEGATIVE U Cannabinoids Screen NEGATIVE Ethyl Alcohol 06/15/19 06/15/19 06/15/19 22:12 22:12 22:12 WBC RBC Hgb Hct MCV MCH MCHC RDW Plt Count MPV Neut # (Auto) Lymph # (Auto) [place] # (Auto) Eos # (Auto) Baso # (Auto) Absolute Nucleated RBC Nucleated RBC % Sodium 138 Potassium 3.8 Chloride 100 L Carbon Dioxide 25 Anion Gap 13.0 BUN 12 Creatinine 0.9 Estimated GFR (MDRD) 106 Glucose 92 Calcium 9.1 TSH 3.54 Urine Color Urine Clarity Urine pH Ur Specific [place] Urine Protein Urine Glucose (UA) Urine Ketones Urine Occult Blood Urine Nitrite Urine Bilirubin Urine Urobilinogen Ur Leukocyte Esterase Ur Microscopic Review Urine Culture Comments Salicylates < 6.0 Urine Opiates Screen Ur Oxycodone Screen Urine Methadone Screen Ur Propoxyphene Screen Acetaminophen < 10 L Ur Barbiturates Screen Ur Tricyclics Screen Ur Phencyclidine Scrn Ur Amphetamine Screen U Methamphetamines Scrn U Benzodiazepines Scrn Urine Cocaine Screen U Cannabinoids Screen Ethyl Alcohol 86.5 PD MEDICAL DECISION MAKING - ED course Complexity details: d/w patient ED course: At 1130, patient is medically clear, blood work alcohol level drug screen all have returned. We will contact psychiatrist for further instruction. At this time patient still expressed "stressed", there is no specific plan for suicidal intent. At 1140 I spoken to the psychiatrist, Dr. Silva I have outlined to her patient's clinical presentation, feeling of stressed out, with suicidal ideation. Blood work alcohol level drug screen were disclosed to her. Vitals was also disclosed to her. She accept the patient to [address] phone #[phone] Transportation will be available at 8:00 in the morning. Departure - Departure Disposition: [facility] Psych Hosp/Unit DC/Xfer Clinical Impression: Suicidal ideation Depression Qualifiers: Depression Type: unspecified Qualified Code(s): F32.9 - Major depressive disorder, single episode, unspecified Condition: Stable
[2019-06-15 22:18] LABS: BASOPHILS % (AUTO) 0.6 %; EOSINOPHILS # (AUTO) 0.1 10^3/uL (0.0-0.7); EOSINOPHILS % (AUTO) 1.6 %; HGB - HEMOGLOBIN 17.2 g/dL (14.0-18.0); LYMPHOCYTES # (AUTO) 1.9 10^3/uL (1.5-3.5); LYMPHOCYTES % (AUTO) 28.3 %; MEAN CORPUSCULAR HEMOGLOBIN 30.1 pg (27.0-31.0); MEAN CORPUSCULAR HGB CONC 33.8 g/dL (32.0-36.0); MEAN CORPUSCULAR VOLUME 89.1 fL (80.0-94.0); MEAN PLATELET VOLUME 10.6 fL (7.4-11.4); MONOCYTES # (AUTO) 0.6 10^3/uL (0.0-1.0); MONOCYTES % (AUTO) 8.3 %; NEUTROPHILS # (AUTO) 4.1 10^3/uL (1.5-6.6); NEUTROPHILS % (AUTO) 60.9 %; PLT - PLATELET COUNT 184 10^3/uL (130-450); RED BLOOD COUNT 5.71 10^6/uL (4.70-6.10); RED CELL DISTRIBUTION WIDTH 13.2 % (12.0-15.0); WHITE BLOOD COUNT 6.7 x10^3/uL (4.8-10.8)
[2019-06-15 22:23] LABS: AMPHETAMINE SCREEN,URINE NEGATIVE (NEGATIVE); BENZODIAZEPINES SCREEN, URINE NEGATIVE (NEGATIVE); COCAINE SCREEN URINE NEGATIVE (NEGATIVE); METHADONE SCREEN, URINE NEGATIVE (NEGATIVE); METHAMPHETAMINES SCREEN, URINE NEGATIVE (NEGATIVE); MUDS CUTOFF CONCENTRATIONS CUTOFF CONC BELOW:; OPIATE SCREEN, URINE NEGATIVE (NEGATIVE); OXYCODONE SCREEN, URINE NEGATIVE (NEGATIVE); PROPOXYPHENE SCREEN, URINE NEGATIVE (NEGATIVE); TRICYCLIC ANTIDEPRESSANT,URINE NEGATIVE (NEGATIVE)
[2019-06-15 22:29] LABS: CALCIUM 9.1 mg/dL (8.5-10.3); CREATININE 0.9 mg/dL (0.6-1.2)
[2019-06-15 22:32] LABS: ACETAMINOPHEN < 10 ug/mL (10-30); SALICYLATE < 6.0 mg/dL
[2019-06-15 22:40] LABS: BILIRUBIN,URINE NEGATIVE (NEGATIVE); GLUCOSE, URINE (UA) NEGATIVE (NEGATIVE); KETONES,URINE (UA) NEGATIVE (NEGATIVE); LEUKOCYTE ESTERASE, URINE NEGATIVE (NEGATIVE); NITRITE,URINE NEGATIVE (NEGATIVE); OCCULT BLOOD,URINE NEGATIVE (NEGATIVE); PROTEIN,URINE NEGATIVE (NEGATIVE); UROBILINOGEN,URINE 0.2 (NORMAL) E.U./dL (NORMAL)
[2019-06-15 22:44] LABS: CLARITY,URINE CLEAR (CLEAR)
[2019-06-16 06:54] VITALS: BP 102/58
== END 2019-06-16 13:07 ==
LOC: ED 21:40
DX: F32.9 Major depressive disorder, single episode, unspecified (principal); R45.851 Suicidal ideations; Z87.891 Personal history of nicotine dependence
CPT/HCPCS: 36415; 80048; 80306; 80307; 80320; 80329; 81001; 81003; 84443; 85025; 87086; 99283; 99285